=== PATIENT | female | born 2000 | race Two or more races ===

== ENCOUNTER 2024-06-06 02:45 | Emergency (ER) | payer BC, MEDICAID ==
[2024-06-06] MEDS ORDERED: Dexamethasone 10 MG/ML VIAL ONE (04:28)
== END 2024-06-06 04:33 | disposition home or self-care (01) ==
LOC: ERS 02:45
DX: J20.9 Acute bronchitis, unspecified (principal); K29.00 Acute gastritis without bleeding; F17.290 Nicotine dependence, other tobacco product, uncomplicated
CPT/HCPCS: 71045; J1100

== ENCOUNTER 2025-02-05 11:25 | Outpatient (CLI) | payer OTHER | END 2025-02-05 11:26 | disposition home or self-care (01) | LOC: ULT 11:25 | PROVIDERS: ATTEND Internal Medicine | DX: R10.11 Right upper quadrant pain (principal) | CPT/HCPCS: 76705 ==

== ENCOUNTER 2025-02-24 08:09 | Emergency (ER) | payer OTHER ==
[2025-02-24] MEDS ORDERED: Lidocaine 1% PF 5 ML VIAL ONE (08:31)
[2025-02-24] MEDS ORDERED: Lidocaine Viscous Sol 2% 15 ml UD Cup ONE (09:03)
== END 2025-02-24 10:48 | disposition home or self-care (01) ==
LOC: ERS 08:09
DX: T16.1XXA Foreign body in right ear, initial encounter (principal); F17.290 Nicotine dependence, other tobacco product, uncomplicated; Z55.6 Problems related to health literacy
CPT/HCPCS: 69200; 99282